=== PATIENT | female | born 1960 | race Two or more races ===

== ENCOUNTER 2024-03-19 14:45 | Outpatient (OUT) | payer OTHER, BC, SELFPAY ==
--- NOTE | 2024-03-19 14:59 | XR_ITS ---
The [address] [address] Patient Name: CANDIDO DUCKWORTH MRN: [id number] date: 1960 Sex: F Assigned Patient Location: [facility] Current Patient Location: [facility] Accession/Order Number: [id number] Exam Date: 03/19/2024 15:05 Report Date: 03/19/2024 15:24 At the request of: BRITNEY VELAZQUEZ Procedure: XR ankle RT min 3V PROCEDURE: XR ankle RT min 3V COMPARISON: None. HISTORY: Right foot injury FINDINGS: BONES:Linear sclerosis through the midportion of the calcaneus, age indeterminate injury versus postsurgical changes. No dislocation. Moderate degenerative changes with marginal osteophyte formation. SOFT TISSUES:Negative. No visible soft tissue swelling. EFFUSION:None visible. OTHER: Negative. XR/XR ankle RT min 3V IMPRESSION: Linear sclerosis of the calcaneus, age indeterminate injury versus postsurgical changes, clinically correlate Electronically authenticated by: AMERICA SHEPPARD Date: 03/19/2024 15:24
== END 2024-03-19 14:46 | disposition home or self-care (01) ==
LOC: RAD 14:53
PROVIDERS: PCP Nurse Practitioner Family; Visit Provider Nurse Practitioner Family
DX: M79.671 Pain in right foot (principal)
CPT/HCPCS: 73610

== ENCOUNTER 2024-04-10 14:43 | Outpatient (OUT) | payer OTHER, BC, SELFPAY ==
--- OUTSIDE RECORDS SUMMARY | 2024-04-10 15:08 | XMS_ITS ---
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 Name Role Phone Dread Castrejon Referring Unavailable Dread Castrejon Attending Unavailable Dread Castrejon Admitting Unavailable Allergies Allergy Classification Reported Allergen(s) Allergy Type Date of Onset Reaction(s) Facility (1 source) cefdinir; Translations: [cefdinir] Drug Allergy [facility]ository (1 source) Penicillins; Translations: [penicillins] Propensity to adverse reactions (disorder) [facility] Encounters Encounter Date Encounter Type Care Provider Facility Start: 11-17-2022 End: 11-18-2022 ambulatory Dread Castrejon Facility:[facility] Payers Date Payer Category Payer Unknown [id number] 1960 Unknown [id number] Results Test Name Value Interpretation Reference Range [facility] ity Physician Orderon 11-22-2022 Physician Order [id number]#1.0 0CD:127 Normal [facility] Coding Summary.on 11-21-2022 Coding Summary. CD:[id number] Gh 0bWw+PGhlYWQ+VG1NFPBuT 92ccTFcoO8FD7dYLO5BWFE TXELJIL0KLM7kdUZ1NFnoL 2VybiAv BgfyrXAfOX60IXc2KMR0oU wzWVqebI9xdVHqK3i4CsTa JG13pP06TVqlWEWvFjM1Gl ZpbjsgbWFy I4wrQvBdwPTfUbg+PHRhYm xlIHdpZHRoPScxMDAlJyBz aIrbOB9kWy9xWSJqDYFifG xhcHNlOiBj t3lbESGaPFnpRQ2ivSihI0 SkzKL3FVCot3g0Ok94yAV+ DLSfVFE6dQraUFkpv855Xe Vzu4qrIVZ2 gHXpVIdhPBD1J59mr6U3QT MbFRScEWP4yCZ6xC3pnWao jjpdU6CuqOCmQlQ9LPL6pG WhvT3evPhg mcjwcJ3bFbx+G01MOU5XAF ZRQQ9DRvm0C2WxErvupLY+ VX04LKJoYF17nPGgwKNys7 wzxVa6WsRf LTHvMUM0vWkmXCufw6LfCX ZzL63jpVPbi1Y4VNIfcDmm bODfHgCrwTP5bQ0eAOjakm hht6nfjbws Xekrm5gyjb86xR00S51dUJ nkUGQwBUM6HHZwYNYqjXkd xu1ezF9qIs3+CUksq5iat3 itnOt3AiOh UOSfrvJrnEyxLXM2e0GxJy 38H1KtzOqhz6HbZmz0sr82 vDJji7H9kHR9ZGaoJMEflD 6fYDhwAzB6 MRYdFhJjdM21oBOnSPivOq 0yjJlziViyYI8wBTQqlrcj BFEluJ9aGYRjkWQaePriKK 4wNTBpbjtm h289LxUsLMG3DLXejKBjI1 XvmN6nQwTjPJYoORCmI1Bh cFSuXWwgH619PIlxMyF4DU KuwmMcJ7Jx VCDuqKktHzS6u1P3Lk1Dt2 RgjesgLUA8GTypVHSkAuW7 OjOxVnA5V4NfMem1NDZqvM sfGC3qS9Sg MRPjxsqbrmauwBY2ASFySX GjhK92jNNjVPgeCp4qq2R4 a542THUgPYYxeA59Ry2yhO ogMTBwdCBU rI7ejpybf1yrjwtfXeHuCY BzFKc6KXj5JEWfvJkcWsRw OXA1HvD6BJW5gKEslL0ljY fbyyqcgE7p Oyc+C67xfP5yUIK4XVF2lv ksVYNklqCfDF55GO89T8Yx PjwvdGFibGU+PGRpdiBzdH krZZ8xQwRw q6dhd3NnIHjwI9OyAUNcPZ ouUun8LEPfORD6fGG4nT1u PNToZYjzf3E8hSZ4J2Hilk Yymb9bg7sh TGGqMGntK94voPZwc4H2CB LrdNN6VNFjrUflPgRwtF70 Oyc+QMDqcGuwa5DdVicty1 skr0zoqRp3 XyMjROYnnzFrdSupSWZ7i2 BcJm81F04nMRneBTSqKGQx QUFpHJTpaNbgoy5wfA8qDw 8+PGNvbCB3 wIW3aA7fLEKoUfE3KZvgN0 41JrQqsDYnOfvay4vav4fr mHr2XwWbQBVmsuCunZuuMZ M5z9XcRd42 T81gUNybCKRyRFGuUOJcOA KraSplbv4lkG3cCr2+PC9j p2bzwc75uL35gRH+PHRkIH M0gCwxOGxh HITpgT1nRGixXjD5FQUuQx KihV20fETbSYdtVz0uqNhl mUesCO2pDJAbovmbb309Yq Zqo6dkPPDp xEArMBctORA6Q77tb2T4ZX TcQHJzXIZ1lEW9cU8xfEqw bjogbGVmdDsgdmVydGljYW hkUCugO591 IHRvcDsnPlBhdGllbnQgTm ZeBEh3Z4ZdMii0WKUgoHps FL2wjPDzXDfnZm6qpWdseY sfWI7yXDZg idsoa973KdMqa8vtENMfeO OySVpyVAT2U90bd9U4XWHf YGHkQJJ7iJJ7fT5wyEpkgd ogbGVmdDsg wzIccHrhZBbiTNehS236KX RvcDsnPkJpcnRoIERhdGU6 RM52GN40xTKiq1F2hTQ0G6 BhZGRpbmct qpwrjZU3HJPwMBHtdO31Rh 1cgSviSe3dVMDwKHD9CMNu jUSpN6MikE9vRbGjLAOnYB VvZ6DwdEUa LEmpY902CEzpNvI8RRRuae FzI1VbKQBfnYeeWrQ6g9X9 Op4PL5T0SM65GD86qUJln8 P3xKC5T9Jp KUKrcvgncupxjZL2NCQxRY XqzT79Dx8blZtrEp3lCVNe RBO2QRBrbKVvT4FclG3lMh AjMDAwMDAw A3WdlSViLCsqD259VNzeTn Q9MGHcpyCkN7QpMNXgfPks WhO5c5Q5Uu1YKDe8HM61DT 56qFAir2E0 hUQ6O1KaMQEcnvjrokfcsY D8MXQfZSRlkX51Rd2aqUbr Zc3lHPQnFYT9XURqeFLmB8 WhoS0xKqOk SPFwLEBkN2AbrXCxNPfzA9 74VSukLjY5JTAloaNsZ5Dm NEYinLeaTzU5y6Y8Hw2EXK JfJS05MKY0 qRN2OC48XI94G7QhPzeybS FibGU+PHRhYmxlIHdpZHRo QCxuOVOmEdPboHfuYP1gMa 9yZGVyLWNv aHgemLOgAuWpn1qnYIOyLE xjAT4pyIcdN1SdlXX9UEYz j6x1Iu26N62hM8YloOP+PG JrqMN4lCZ2 xB4uEoLgOhY1DHsrF381Kq PpqKZjMqbds3jpx7fjcSs2 RnE7DBJzouTjsObgKXY3c7 XwHu24X63y IHdpZHRoPSIxNSUiIHZhbG ipto4yfQ1wGs4+PGNvbCB3 oUZ3gK4oFjZaPwY5LSkmY2 49InRvcCIv Bltft9jyz0jboRq5FhDoPF AqvgKswVqfEUF0x7IrKe80 A9IksCiwk6MoJbj2xo75cP Mzj3K0nHZ1 U3NeEOQxfveitLGhhKatWJ 7wOMMejfakKOCnsP6gQTXg H9x2QhYyHiN0FJqiV5Mtmw K1GKAlwRVb SAvaAXK0U29wh1U0SCHfDQ EbXSF4nFG8pZ8gzGnutnjc bGVmdDsgdmVydGljYWwtYW smV679GWNo vJbwMDXjoS5fRSYzcNOsnV ufQK1pZBWtnkfjYzhFDaBP TiwgREVCUkEgTTwvdGQ+PH QkOKU9cMcy SMpdEVYuoK6qJAKyG8m8Sf BdOzL4ABxvW6UnUQNgmeps Kv56lA9fScFsEwB0UAimH6 SvxoU3JOGh xIBcBFxnLKL5H82os7B3XM JwDLJdTJV9zYL1fB4gfFst bjogbGVmdDsgdmVydGljYW xkZKlmV724 KDWpxWnqGbI5KiGgVnQ4IW t9R6FdZzj0ZWJvwFfbGF6a yENzPMcaTa5kcPnszVwqDE 4wNTBpbjtw SJTctD4uHAVdnJBsdWnxTP 9jYWBtxzrac962SnKaOQI1 WELthWFiG3KjmD2uSoKwIB InCHPrL3Gv uFYvLHegG672FXocKlV6PW AbbjCqV3VhPYAmtVuiQpI1 k5Y5Op51DgGVNLVjzdeyhV Q+PHRkIHN0 xKpmMXxuOWWuvE3eNYRrL3 x6ZgOqEwY8JBjaG6XwGEWi gykoDo92hG8rEkMdYaV3DH pqF9SlcrG2 JDDalJDnVWybUYS9Z00xc4 V8CIZxKLShJWL4uJN9tI3j bGlnbjogbGVmdDsgdmVydG ljYWwtYWxp U252HHYpfJxzOcYkuGQeGJ wvdGQ+REBrJAP2xCskGHxj NLTywI0zWJHfA9b4EgTeUa L8CLwdH4Vx TOQsbnngAo48zJ2cMdUiZy H7AGymH6ZwebJ7AODekMNi DAucKEL1D86nf8B4QMQfBW CsNVA4fBG3 jB2ujVzxlxldkFSmlZmgnt XqsNdtZFngSWpkG908OJAi nSkoTk01pGMksHxubjE2F5 RkPjwvdHI+ CG02MUJdUC67gVIusLKpn2 dmgNm1OiSgAEBzXFL6lRjy TMkhw3TvZSXrQ71uoRGdm1 I0KIObzVny bCHyRgExpQA8iO5kKFzlto mxs2mvixzjQcomr6aska38 iY43P22tGQcnTDUqZRRoEC UiIHZhbGln js3hoS4xYb9+FYRsqCU4wR O7qP8nAfMdJoX7CDrkE946 IhTteOMwYnwts3ftx5akyT k8BoZmJSIj dsAubXknZCC3i7TlBm08D5 9sIHdpZHRoPSIyMCUiIHZh kOegfm8twS1cQe7+PC9jb2 ifih90xG36 dHI+RYIlEQQ5nFyxRIipNH XpeQ2yPIcyRuM8TTPgZtMw sV47mMKgSXnvAo3nxZsuhP oaXN6yKCRa vlwil079KkMba1fzGWWpsJ BcVVoqOJD0C46hu2R3WFYc PRLkMBV6rDG6uA9xwJubfx ogbGVmdDsg aiMqwCgwVAxtRUxyV845QH UeePuoMuFzoKPpG9qwlmOF ST7hModokUK+LEGcKMD7kA xlPSdwYWRk tU0cUXPgW5q3TvGjVcG0IG vmX8FarsE6KUVmpWDnBUCl aJIEvD9uvzjuj9teyrseMc AwMDAwMDt0 GNg7EWHjzIdgJrKzBTM4Wl L7CTJ2nDMxqI0icWfglewo bV0eXqz+RklOOjwvdGQ+PH UwKYF0jGyi LPzeZXFwkR4ePROpJ1k2Pz FhFfE0UYioD1RvnrX7TFVr hRQgTJYqmHTBjP7bmuohu0 xvcjogIzAw NQYfRDe5ZNs8UGDkoRolDo BiTCX1ZiM4UXU0dMZdgO1e cOtuorptyM4rPpg+TVJOOj wvdGQ+PHRk ZAQ2qIfzMZmzMIUxgR5fDU KvT2s6KrEuIeQ0AXcxD0Pj kmX2GRXtrPVdJBDlrTFBbF 2uawqfu0hh kmwgNuXlISKhQTe2JZg1VN MzyIiqUzMkERL0QgX1DLQ4 nCCmvY8muEadktzgvU0fAf c+RPG8RCV6 YE19FI84P1XqEmcjnQBhgB U+PHRhYmxlIHdpZHRoPScx DLOhFeHthXfgPB8zVh3dLZ VyLWNvbGxh cHNl (more content not included)... Normal [facility] Consent for Treatmenton 10-30 Consent for Treatment [id number]#1.0 0CD:127 Normal [facility] US PVR Lower EXT Complete Bi laton 11-17-2022 US PVR Lower EXT Complete Bilat Exam Date/Time: 11/17/2022 15:58 EST Reason for Exam: I73.9 ,M79.606 Report IMPRESSION: THE RIGHT ANKLE-BRACHIAL INDEX IS NORMAL AT REST. THE LEFT ANKLE-BRACHIAL INDEX IS BORDERLINE ABNORMAL AT REST. CLINICAL HISTORY: I73.9 ,M79.606. Intermittent claudication. Left leg rest pain. COMMENT: On the right, the brachial systolic pressure is 123 , the high thigh pressure is 138 , the low thigh pressure is 143 , the calf pressure is 119 , the posterior tibial ankle pressure is 127 , the dorsalis pedis ankle pressure is 127 , and the digit pressure is 92. The high thigh-brachial index is 1.12, with normal 1.0 or greater. The ankle-brachial index at the posterior tibial artery is 1.03 and at the dorsalis pedis is 1.03, with normal 1.0 or greater. The toe-brachial index is 0.75, with normal 0.7 or greater. The plethysmography waveforms are normal to mildly abnormal. On the left, the brachial systolic pressure is 116 , the high thigh pressure is 146 , the low thigh pressure is 138 , the calf pressure is 126 , the posterior tibial ankle pressure is 121 , the dorsalis pedis ankle pressure is 117 , and the digit pressure is 101 . The high thigh-brachial index is 1.19, with normal 1.0 or greater. The ankle-brachial index at the posterior tibial artery is 0.98 and at the dorsalis pedis is 0.95, with normal 1.0 or greater. The toe-brachial index is 0.82, with normal 0.7 or greater. The plethysmography waveforms are normal to mildly abnormal. FINAL REPORT Dictated: 11/17/2022 4:44 pm Narendra Gagnon M.D. Signed (Electronic Signature): 11/17/2022 4:44 pm Signed by: Narendra Gagnon M.D. Transcribed by: CARLTON Technologist: MÓNICA Normal [facility] Pre-Certification Formon Pre-Certification Form [id number] 00CD:127 [facility] Physician Orderon 11-10-2022 Physician Order [id number]#1.0 0CD:127 [facility] Summary Purpose Family History No Family History Records Found Advance Directives No Advanced Directives Records Found Additional Source Comments INFORMATION SOURCE (unrecogn ized section and content) DATE CREATED AUTHOR 11/22/2022 [facility] FOR RECORDS PERTAINING TO PATIENTS WHO ARE OR HAVE BEEN ENROLLED IN A CHEMICAL DEPENDENCY/SUBSTANCEABUSE PROGRAM, SOME INFORMATION MAY BE OMITTED. This clinical summary was aggregated from multiple sources. Caution should be exercised in using it in the provision of clinical care. This summary normalizes information from multiple sources, and as a consequence, information in this document may materially change the coding, format and clinical context of patient data. In addition, data may be omitted in some cases. CLINICAL DECISIONS SHOULD BE BASED ON THE PRIMARY CLINICAL RECORDS. [facility] [employer] provides no warranty or guarantee of the accuracy or completeness of information in this document.
--- NOTE | 2024-04-10 15:19 | CT_ITS ---
[address] [address] Patient Name: CANDIDO DUCKWORTH MRN: [id number] date: 1960 Sex: F Assigned Patient Location: CT Current Patient Location: Accession/Order Number: [id number] Exam Date: 04/10/2024 15:03 Report Date: 04/11/2024 07:25 At the request of: BRITNEY VELAZQUEZ Procedure: CT ankle RT wo con EXAMINATION: CT foot RT wo con, CT ankle RT wo con HISTORY: Sprain Of Unspecified Ligament Of Ankle COMPARISON: No relevant comparison available. TECHNIQUE: Multi-planar CT images were created without IV contrast. Dose reduction techniques were achieved by using automated exposure control and/or adjustment of mA and/or kV according to patient size and/or use of iterative reconstruction technique. FINDINGS: BONES: No acute fracture or dislocation. No focal lytic or sclerotic changes. Moderate degenerative changes with joint space narrowing and marginal osteophyte formation. Mild enthesopathic spurring plantar calcaneus. SOFT TISSUES: Mild bimalleolar soft tissue swelling, right greater than left EFFUSION: None visible. OTHER: Negative. CT/CT ankle RT wo con IMPRESSION: Mild ankle soft tissue swelling. Moderate osteoarthritis No acute fracture or dislocation Electronically authenticated by: AMERICA SHEPPARD Date: 04/11/2024 07:25
--- NOTE | 2024-04-10 15:19 | CT_ITS ---
[address] [address] Patient Name: CANDIDO DUCKWORTH MRN: [id number] date: 1960 Sex: F Assigned Patient Location: CT Current Patient Location: Accession/Order Number: [id number] Exam Date: 04/10/2024 15:03 Report Date: 04/11/2024 07:25 At the request of: BRITNEY VELAZQUEZ Procedure: CT foot RT wo con EXAMINATION: CT foot RT wo con, CT ankle RT wo con HISTORY: Sprain Of Unspecified Ligament Of Ankle COMPARISON: No relevant comparison available. TECHNIQUE: Multi-planar CT images were created without IV contrast. Dose reduction techniques were achieved by using automated exposure control and/or adjustment of mA and/or kV according to patient size and/or use of iterative reconstruction technique. FINDINGS: BONES: No acute fracture or dislocation. No focal lytic or sclerotic changes. Moderate degenerative changes with joint space narrowing and marginal osteophyte formation. Mild enthesopathic spurring plantar calcaneus. SOFT TISSUES: Mild bimalleolar soft tissue swelling, right greater than left EFFUSION: None visible. OTHER: Negative. CT/CT foot RT wo con IMPRESSION: Mild ankle soft tissue swelling. Moderate osteoarthritis No acute fracture or dislocation Electronically authenticated by: AMERICA SHEPPARD Date: 04/11/2024 07:25
== END 2024-04-10 14:44 | disposition home or self-care (01) ==
LOC: CT 14:43
PROVIDERS: PCP Nurse Practitioner Family; Visit Provider Nurse Practitioner Family
DX: S93.401A Sprain of unspecified ligament of right ankle, initial encounter (principal); S93.409A Sprain of unspecified ligament of unspecified ankle, initial encounter; M25.471 Effusion, right ankle
CPT/HCPCS: 73700